=== PATIENT | male | born 1975 | race Caucasian/White ===

== ENCOUNTER 2020-09-21 10:55 | Outpatient (CLI) | payer MEDICAID, SELFPAY | END 2020-09-21 23:59 | disposition home or self-care (01) | LOC: MLB 10:55 → MDS 10-01 09:02 → MMU 10-01 09:12 → MDS 10-01 09:45 → EDSTATUS 10-01 15:00 | PROVIDERS: ATTEND Internal Medicine Gastroenterology | DX: Z01.812 Encounter for preprocedural laboratory examination (principal); R06.02 Shortness of breath; Z20.828 Contact with and (suspected) exposure to other viral communicable diseases | CPT/HCPCS: U0003 ==